=== PATIENT | female | born 1945 | race Caucasian/White ===

== ENCOUNTER 2024-04-29 00:24 | Inpatient (IN) | payer MEDICARE, BC ==
[2024-04-29] MEDS ORDERED: Pantoprazole DR 40 MG TAB PO PRN (02:30)
[2024-04-29] MEDS ORDERED: Ondansetron ODT 4 MG TAB PO PRN (05:26)
[2024-04-29 05:56] LABS: #Basophils 0.03 10x3/uL (0.0-0.2); %Basophils 0.7 % (0.0-1.0); %Eosinophils 2.5 % (0.0-10.0); %Lymphocytes 18.7 % (21.0-51.0); %Monocytes 11.8 % (0.0-10.0); %Neutrophils 65.8 % (42.0-75.0); Hematocrit 30.6 % (36.0-47.0); Mean Corpuscular HGB CONC 29.4 g/dL (32.0-36.0); Mean Corpuscular Volume 74.8 fL (78.0-98.0); Mean Platelet Volume 9.7 fL (7.4-10.4); Platelet Count 212 10x3/uL (130-400); RBC Distribution Width 18.5 % (11.5-14.5); Red Blood Cell (RBC) Count 4.09 mill/uL (4.20-5.40)
[2024-04-29 06:17] LABS: Anion Gap 12 mmol/L (10-20); BUN (Urea Nitrogen) 8 mg/dL (9.8-20.1); Calc. Creatinine Clearance 48 mL/min (70-130); Calcium 9.8 mg/dL (7.8-10.44); Carbon Dioxide 23 mmol/L (23-31); Chloride 107 mmol/L (98-107); Estimated GFR 91; Glucose 95 mg/dL (83-110); Potassium 3.6 mmol/L (3.5-5.1); Sodium 138 mmol/L (136-145)
[2024-04-29 09:35] VITALS: BMI 20.9
[2024-04-29 10:08] LABS: Phosphorus 2.1 mg/dL (2.3-4.7)
[2024-04-29 10:25] LABS: Iron 19 ug/dL (50-170); Iron Binding Capacity, Total 406 mcg/dL (265-497)
[2024-04-29] MEDS: Losartan 25 MG TAB PO SCH (10:47)
[2024-04-29] MEDS: Potassium Chloride 20 MEQ TAB PO SCH (10:47)
[2024-04-29] MEDS: PHOS-NAK 1 PKT PACK PO SCH (12:00)
[2024-04-29] MEDS ORDERED: Calcium Carbonate 500 MG ChewTAB PO PRN (14:11)
[2024-04-29] MEDS ORDERED: hydrALAZINE 20 MG/ML VIAL SLOW IVP PRN (14:23)
[2024-04-29] MEDS: Ibuprofen 200 MG TAB PO PRN (15:21)
[2024-04-29] MEDS: Calcium Carbonate 600 MG + Vit D TAB PO SCH (15:22)
[2024-04-29] MEDS: Famotidine 20 MG TAB PO SCH (22:25)
[2024-04-30] MEDS: Ondansetron PF 4 MG/2 ML Vial ONE (05:25)
[2024-04-30] MEDS ORDERED: Ondansetron PF 4 MG/2 ML Vial IVP PRN (05:29)
[2024-04-30 05:58] LABS: #Basophils 0.04 10x3/uL (0.0-0.2); #Eosinphils Less than 0.03 10x3/uL (0.0-0.7); %Basophils 0.3 % (0.0-1.0); %Lymphocytes 2.9 % (21.0-51.0); %Monocytes 5.8 % (0.0-10.0); %Neutrophils 90.2 % (42.0-75.0); Hematocrit 32.9 % (36.0-47.0); Hemoglobin 9.6 g/dL (12.0-16.0); Mean Corpuscular HGB CONC 29.2 g/dL (32.0-36.0); Mean Corpuscular Hemoglobin 21.9 pg (27.0-31.0); Mean Corpuscular Volume 75.1 fL (78.0-98.0); Mean Platelet Volume 9.2 fL (7.4-10.4); Platelet Count 312 10x3/uL (130-400); RBC Distribution Width 18.5 % (11.5-14.5); Red Blood Cell (RBC) Count 4.38 mill/uL (4.20-5.40)
[2024-04-30 06:28] LABS: Anion Gap 15 mmol/L (10-20); BUN (Urea Nitrogen) 23 mg/dL (9.8-20.1); Calc. Creatinine Clearance 43 mL/min (70-130); Calcium 11.2 mg/dL (7.8-10.44); Carbon Dioxide 21 mmol/L (23-31); Chloride 106 mmol/L (98-107); Estimated GFR 88; Glucose 173 mg/dL (83-110); Potassium 4.2 mmol/L (3.5-5.1); Sodium 138 mmol/L (136-145)
[2024-04-30 07:40] LABS: Phosphorus 2.3 mg/dL (2.3-4.7)
[2024-04-30] MEDS ORDERED: Pantoprazole 40 MG VIAL IVP SCH (09:00)
[2024-04-30] MEDS ORDERED: Losartan 25 MG TAB PO SCH (09:00)
[2024-04-30] MEDS: Calcium Carbonate 500 MG ChewTAB PO PRN (09:55)
[2024-04-30] MEDS: Losartan 25 MG TAB PO SCH (09:56)
[2024-04-30] MEDS: Famotidine 20 MG TAB PO SCH (09:56)
[2024-04-30] MEDS: Ondansetron PF 4 MG/2 ML Vial IVP PRN (09:57)
[2024-04-30] MEDS: Lactated Ringer's 1,000 ML IV SCH (09:57)
[2024-04-30] MEDS: Ferrous Sulfate 325 MG TAB PO SCH (14:40)
[2024-04-30 16:36] LABS: Hemoglobin 8.6 g/dL (12.0-16.0); Mean Corpuscular HGB CONC 29.7 g/dL (32.0-36.0); Mean Corpuscular Volume 74.2 fL (78.0-98.0); Mean Platelet Volume 9.7 fL (7.4-10.4); Platelet Count 273 10x3/uL (130-400); RBC Distribution Width 18.7 % (11.5-14.5); Red Blood Cell (RBC) Count 3.91 mill/uL (4.20-5.40)
[2024-05-01 06:03] LABS: #Basophils Less than 0.03 10x3/uL (0.0-0.2); #Eosinphils Less than 0.03 10x3/uL (0.0-0.7); %Basophils 0.2 % (0.0-1.0); %Eosinophils 0.1 % (0.0-10.0); %Lymphocytes 6.4 % (21.0-51.0); %Monocytes 7.6 % (0.0-10.0); %Neutrophils 84.7 % (42.0-75.0); Mean Corpuscular HGB CONC 28.6 g/dL (32.0-36.0); Mean Corpuscular Hemoglobin 22.2 pg (27.0-31.0); Mean Corpuscular Volume 77.6 fL (78.0-98.0); Mean Platelet Volume 9.5 fL (7.4-10.4); Platelet Count 238 10x3/uL (130-400); RBC Distribution Width 18.9 % (11.5-14.5); Red Blood Cell (RBC) Count 3.61 mill/uL (4.20-5.40)
[2024-05-01 06:10] LABS: Anion Gap 14 mmol/L (10-20); BUN (Urea Nitrogen) 25 mg/dL (9.8-20.1); Calc. Creatinine Clearance 32 mL/min (70-130); Calcium 10.8 mg/dL (7.8-10.44); Carbon Dioxide 21 mmol/L (23-31); Chloride 109 mmol/L (98-107); Estimated GFR 62; Glucose 132 mg/dL (83-110); Potassium 4.4 mmol/L (3.5-5.1); Sodium 140 mmol/L (136-145)
[2024-05-01 06:33] LABS: Burr Cells SLIGHT = 2-5 cells HPF (0-1); Elliptocytes SLIGHT = 2-5 cells HPF (0-1); Platelet Adequacy Comment Platelets Normal; Poikilocytosis SLIGHT = 6-15 cells HPF (0-5); Polychromasia SLIGHT = 2-3 cells HPF (0-2)
[2024-05-01] MEDS: Lactated Ringer's 1,000 ML IV SCH (09:12)
[2024-05-01 11:25] LABS: PTT 26.2 sec (22.9-36.1); Prothrombin Time 13.6 sec (12.0-14.7)
[2024-05-01] MEDS: Spironolactone 25 MG TAB PO SCH (14:00)
[2024-05-01] MEDS: Pantoprazole 40 MG VIAL IVP SCH ×2 (14:00→21:35)
[2024-05-01] MEDS: Losartan 25 MG TAB PO SCH (14:00)
[2024-05-01 14:38] LABS: Hematocrit 27.4 % (36.0-47.0)
[2024-05-01] MEDS ORDERED: GLYCOPYRROLATE/PF 0.2 MG/ML VIAL ONE ×2 (16:19)
[2024-05-01] MEDS ORDERED: Lidocaine 2% PF 5 ML VIAL ONE (16:19)
[2024-05-01] MEDS ORDERED: PROPOFOL 40 ML ONE (16:19)
[2024-05-01] MEDS ORDERED: Esmolol 100 MG/10 ML VIAL ONE (16:25)
[2024-05-01] MEDS ORDERED: PHENYLEPHRINE-NS 100 MCG/ML 10 ML SYRINGE ONE (16:26)
[2024-05-01] MEDS ORDERED: Ondansetron PF 4 MG/2 ML Vial ONE (16:29)
[2024-05-01] MEDS ORDERED: SUGAMMADEX SODIUM 200 MG/2 ML VIAL ONE (17:10)
[2024-05-01] MEDS ORDERED: Rocuronium Bromide 10 MG/ML (10ML VIAL) ONE (17:10)
[2024-05-01] MEDS: traMADol HCl 50 MG TAB PO PRN (21:35)
[2024-05-02 04:55] LABS: #Basophils Less than 0.03 10x3/uL (0.0-0.2); #Eosinphils Less than 0.03 10x3/uL (0.0-0.7); %Basophils 0.1 % (0.0-1.0); %Eosinophils 0.3 % (0.0-10.0); %Lymphocytes 8.8 % (21.0-51.0); %Monocytes 7.7 % (0.0-10.0); %Neutrophils 82.4 % (42.0-75.0); Hematocrit 23.3 % (36.0-47.0); Hemoglobin 6.8 g/dL (12.0-16.0); Mean Corpuscular HGB CONC 29.2 g/dL (32.0-36.0); Mean Corpuscular Hemoglobin 22.4 pg (27.0-31.0); Mean Corpuscular Volume 76.9 fL (78.0-98.0); Mean Platelet Volume 9.8 fL (7.4-10.4); Platelet Count 201 10x3/uL (130-400); RBC Distribution Width 18.8 % (11.5-14.5); Red Blood Cell (RBC) Count 3.03 mill/uL (4.20-5.40)
[2024-05-02 05:08] LABS: Anion Gap 11 mmol/L (10-20); BUN (Urea Nitrogen) 16 mg/dL (9.8-20.1); Calc. Creatinine Clearance 46 mL/min (70-130); Calcium 9.4 mg/dL (7.8-10.44); Carbon Dioxide 25 mmol/L (23-31); Chloride 109 mmol/L (98-107); Estimated GFR 90; Glucose 88 mg/dL (83-110); Potassium 3.9 mmol/L (3.5-5.1); Sodium 141 mmol/L (136-145)
[2024-05-02] MEDS ORDERED: Iron Sucrose Complex 200 MG in Sodium Chloride 0.9% 100 ML IVPB SCH (12:00)
[2024-05-02 14:56] LABS: Troponin I Less than 0.010 ng/mL (< 0.028)
[2024-05-02] MEDS: Sodium Ferric Gluconate 250 MG in Sodium Chloride 0.9% 250 ML 250 ML IVPB SCH (16:04)
[2024-05-02] MEDS: Losartan 25 MG TAB PO SCH (18:38)
[2024-05-02 18:48] LABS: Hematocrit 30.3 % (36.0-47.0); Hemoglobin 9.4 g/dL (12.0-16.0)
[2024-05-03 03:52] LABS: #Basophils 0.03 10x3/uL (0.0-0.2); %Basophils 0.5 % (0.0-1.0); %Eosinophils 1.4 % (0.0-10.0); %Lymphocytes 7.7 % (21.0-51.0); %Monocytes 7.3 % (0.0-10.0); %Neutrophils 82.2 % (42.0-75.0); Hematocrit 30.8 % (36.0-47.0); Hemoglobin 9.4 g/dL (12.0-16.0); Mean Corpuscular HGB CONC 30.5 g/dL (32.0-36.0); Mean Corpuscular Hemoglobin 24.1 pg (27.0-31.0); Mean Platelet Volume 9.6 fL (7.4-10.4); Platelet Count 199 10x3/uL (130-400)
[2024-05-03 04:19] LABS: Anion Gap 12 mmol/L (10-20); BUN (Urea Nitrogen) 12 mg/dL (9.8-20.1); Calc. Creatinine Clearance 44 mL/min (70-130); Calcium 9.5 mg/dL (7.8-10.44); Carbon Dioxide 22 mmol/L (23-31); Chloride 107 mmol/L (98-107); Estimated GFR 90; Glucose 82 mg/dL (83-110); Potassium 3.8 mmol/L (3.5-5.1); Sodium 137 mmol/L (136-145)
[2024-05-03 04:40] VITALS: BMI 22.8
[2024-05-03] MEDS: Losartan 25 MG TAB PO SCH (11:00)
[2024-05-03] MEDS: Empagliflozin 10 MG TAB PO SCH (11:02)
[2024-05-04 04:23] LABS: #Basophils 0.03 10x3/uL (0.0-0.2); %Basophils 0.5 % (0.0-1.0); %Eosinophils 2.1 % (0.0-10.0); %Monocytes 10.3 % (0.0-10.0); %Neutrophils 77.9 % (42.0-75.0); Hemoglobin 9.8 g/dL (12.0-16.0); Mean Corpuscular HGB CONC 30.6 g/dL (32.0-36.0); Mean Corpuscular Hemoglobin 24.1 pg (27.0-31.0); Mean Corpuscular Volume 78.6 fL (78.0-98.0); Mean Platelet Volume 9.2 fL (7.4-10.4); Platelet Count 212 10x3/uL (130-400); RBC Distribution Width 19.8 % (11.5-14.5); Red Blood Cell (RBC) Count 4.07 mill/uL (4.20-5.40)
[2024-05-04 04:38] LABS: Anion Gap 12 mmol/L (10-20); BUN (Urea Nitrogen) 15 mg/dL (9.8-20.1); Calc. Creatinine Clearance 54 mL/min (70-130); Calcium 9.8 mg/dL (7.8-10.44); Carbon Dioxide 21 mmol/L (23-31); Chloride 107 mmol/L (98-107); Estimated GFR 92; Glucose 63 mg/dL (83-110); Potassium 3.4 mmol/L (3.5-5.1); Sodium 137 mmol/L (136-145)
[2024-05-04] MEDS ORDERED: Dextrose 5% in Water 1,000 ML IV PRN (06:27)
[2024-05-04] MEDS ORDERED: Glucagon 1 MG/ML KIT IM PRN (06:27)
[2024-05-04] MEDS ORDERED: Dextrose 50% Abboject 50 ML SYRINGE SLOW IVP PRN (06:27)
[2024-05-04] MEDS: Empagliflozin 10 MG TAB PO SCH (11:43)
[2024-05-04 16:59] LABS: Glucose POC Confirmation 101 mg/dL (83-110)
[2024-05-04 17:26] VITALS: BP 140/65; TEMP 98.1
== END 2024-05-04 19:00 | DRG 85 ==
LOC: SURG B 00:24 → INTOOBSV 00:24 → IMCU/EMU 04:25 → OBSVTOIN 04-30 09:26 → 2NO 04-30 17:58
PROVIDERS: ADMIT Family Medicine; ATTEND Family Medicine
PROC: 0DB38ZX Excision of Lower Esophagus, Via Natural or Artificial Opening Endoscopic, Diagnostic (ICD-10-PCS; principal; 2024-05-01)
PROC: 0DB18ZX Excision of Upper Esophagus, Via Natural or Artificial Opening Endoscopic, Diagnostic (ICD-10-PCS; 2024-05-01)
PROC: 30233N1 Transfusion of Nonautologous Red Blood Cells into Peripheral Vein, Percutaneous Approach (ICD-10-PCS; 2024-05-02)
DX: S06.A0XA Traumatic brain compression without herniation, initial encounter (principal); K22.11 Ulcer of esophagus with bleeding; G96.00 Cerebrospinal fluid leak, unspecified; D62 Acute posthemorrhagic anemia; R64 Cachexia; E46 Unspecified protein-calorie malnutrition; I50.30 Unspecified diastolic (congestive) heart failure; S32.010A Wedge compression fracture of first lumbar vertebra, initial encounter for closed fracture; S32.020A Wedge compression fracture of second lumbar vertebra, initial encounter for closed fracture; S32.040A Wedge compression fracture of fourth lumbar vertebra, initial encounter for closed fracture; S22.080A Wedge compression fracture of T11-T12 vertebra, initial encounter for closed fracture; I08.1 Rheumatic disorders of both mitral and tricuspid valves; H54.7 Unspecified visual loss; K21.9 Gastro-esophageal reflux disease without esophagitis; M94.0 Chondrocostal junction syndrome [Tietze]; E16.2 Hypoglycemia, unspecified; K44.9 Diaphragmatic hernia without obstruction or gangrene; R29.6 Repeated falls; D50.9 Iron deficiency anemia, unspecified; I45.10 Unspecified right bundle-branch block; Z88.0 Allergy status to penicillin; Z90.710 Acquired absence of both cervix and uterus; Z79.899 Other long term (current) drug therapy; Z68.20 Body mass index [BMI] 20.0-20.9, adult; W19.XXXA Unspecified fall, initial encounter
CPT/HCPCS: 36415; 36416; 36430; 70450; 71045; 71260; 72125; 74177; 80048; 80053; 82728; 83540; 83550; 83735; 84100; 84145; 84443; 84484; 85025; 85610; 85730; 86850; 86900; 86901; 87040; 88305; 88312; 88342; 93005; 93010; 93306; 96374; C9113; G0378; J2001; J2405; J2704; J2916; J3490; J7050; J7120; P9016